=== PATIENT | female | born 2000 ===

== ENCOUNTER 2021-07-12 19:47 | Emergency (ER) | payer BC ==
[2021-07-13] MEDS ORDERED: KETOROLAC 60 MG/2 ML INJ IM ONE (07:43)
[2021-07-13] MEDS ORDERED: BUTALB/ACETAMINOPHEN/CAFFEINE TAB PO ONE (07:43)
[2021-07-13] MEDS ORDERED: dexAMETHasone 4 MG/ML VIAL IM ONE (07:45)
--- NOTE | 2021-07-13 07:46 | Emergency Department Report ---
ED General Adult HPI - General Chief complaint: Headache Stated complaint: HEADACHE/FEVER/STIFF NECK Time Seen by Provider: 07/13/21 07:36 Source: patient Mode of arrival: Ambulatory Limitations: No Limitations - History of Present Illness Initial comments: 21-year-old female who denies any significant past medical history presents to the ER today with complaints of fever, headache and neck pain. Patient states that she has been having the symptoms since last week. She states that the highest measured temperature she has had was 100. She has been taking Advil with minimal relief of her symptoms. She reports associated rhinorrhea and body aches but she denies any sore throat, cough, chest pain, abdominal pain, symptoms or any additional symptoms. She states that she has been vaccinated against COVID-19. She denies any ill contacts or recent travel. MD Complaint: Neck pain, headache, fever -: Gradual, days(s) (Since last week) - Related Data Previous Rx's Medication Instructions Recorded Last Taken Type Butalb/Acetamin/Caff 50-325-40 1 tab PO Q6HR PRN #12 tab 07/13/21 Unknown Rx [Fioricet 50-325-40] Ketorolac [Toradol] 10 mg PO Q6H PRN #20 07/13/21 Unknown Rx Allergies Allergy/AdvReac Type Severity Reaction Status Date / Time shellfish derived Allergy Swelling Verified 07/12/21 20:47 ED Review of Systems ROS: Stated complaint: HEADACHE/FEVER/STIFF NECK Other details as noted in HPI Comment: All other systems reviewed and negative Constitutional: fever Eyes: denies: eye pain, eye discharge, vision change ENT: other (rhinorrhea) Respiratory: denies: cough, shortness of breath, SOB with exertion, SOB at rest, wheezing Cardiovascular: denies: chest pain, palpitations Gastrointestinal: denies: abdominal pain, nausea, vomiting, diarrhea, constipation, hematemesis, melena, hematochezia Genitourinary: denies: urgency, dysuria, discharge Musculoskeletal: denies: back pain, joint swelling, arthralgia, myalgia Skin: denies: rash, lesions, change in color, change in hair/nails, pruritus Neurological: headache. denies: numbness, paresthesias, confusion, abnormal g ait, vertigo Psychiatric: denies: anxiety, depression, auditory hallucinations, visual hallucinations, homicidal thoughts, suicidal thoughts Hematological/Lymphatic: denies: easy bleeding, easy bruising, swollen glands ED Past Medical Hx - Medications Home Medications: Home Medications Medication Instructions Recorded Confirmed Last Taken Type Butalb/Acetamin/Caff 50-325-40 1 tab PO Q6HR PRN #12 tab 07/13/21 Unknown Rx [Fioricet 50-325-40] Ketorolac [Toradol] 10 mg PO Q6H PRN #20 07/13/21 Unknown Rx ED Physical Exam - General Limitations: No Limitations General appearance: alert, in no apparent distress - Head Head exam: Present: atraumatic, normocephalic, normal inspection - Eye Eye exam: Present: normal appearance, PERRL, EOMI Pupils: Present: normal accommodation - ENT ENT exam: Present: normal exam, mucous membranes moist, TM's normal bilaterally - Neck Neck exam: Present: normal inspection, tenderness (bilateral paraspinal muscles with spasm), full ROM. Absent: meningismus - Respiratory Respiratory exam: Present: normal lung sounds bilaterally. Absent: respiratory distress, wheezes, rales, rhonchi - Cardiovascular Cardiovascular Exam: Present: regular rate, normal rhythm, normal heart sounds - Neurological Exam Neurological exam: Present: alert, oriented X3, CN II-XII intact, normal gait - Psychiatric Psychiatric exam: Present: normal affect, normal mood - Skin Skin exam: Present: intact ED Course Vital Signs 07/12/21 07/13/21 07/13/21 20:49 08:00 08:01 Temperature 98.8 F Pulse Rate 98 H Respiratory 16 18 18 Rate Blood Pressure 109/63 Blood Pressure [Left] O2 Sat by Pulse 99 Oximetry 07/13/21 07/13/21 08:40 08:49 Temperature 98.7 F 98.7 F Pulse Rate 67 67 Respiratory 18 16 Rate Blood Pressure Blood Pressure 95/54 95/54 [Left] O2 Sat by Pulse 98 98 Oximetry ED Medical Decision Making - Lab Data Result diagrams: 07/13/21 07:57 07/13/21 07:57 Laboratory Results - last 24 hr 07/13/21 07/13/21 07:57 07:57 WBC 5.0 RBC 4.56 Hgb 12.1 Hct 37.9 MCV 83 MCH 27 L MCHC 32 RDW 12.8 L Plt Count 185 Lymph % (Auto) [employer] Support Sales Representative Seg Neutrophils % [employer] Support [employer] Representative Sodium 140 Potassium 3.7 Chloride 104.3 Carbon Dioxide 29 Anion Gap 10 BUN 5 L Creatinine 0.5 L Estimated GFR > 60 BUN/Creatinine Ratio 10 Glucose 92 Calcium 8.7 - Medical Decision Making Labs reviewed and unremarkable. Patient currently sitting in recliner playing on her phone. Patient is not toxic, not ill-appearing and not in any distress. She has some mild tenderness to palpation to the paraspinal muscles of her neck as well as some spasm but she moves her neck just fine without any stiffness or rigidity. She has no meningeal signs on exam. she is neurologically intact and ambulates well. She appears hydrated. Her vital signs have been stable. Suspect her symptoms could be related to a viral illness at this time. She states that she is vaccinated against COVID but I did recommend just getting a test to rule that out. At this time there is no indication for LP, head CT or any additional work-up, neuro consult or admission. Discussed suspected diagnosis and treatment plan with patient. Recommend close follow-up with with PCP. She understands to return if worse. Critical care attestation.: If time is entered above; I have spent that time in minutes in the direct care of this critically ill patient, excluding procedure time. ED Disposition Clinical Impression: Viral syndrome, Neck muscle spasm Disposition: 01 HOME / SELF CARE / HOMELESS Is pt being admited?: No Does the pt Need Aspirin: No Condition: Stable Instructions: Muscle Cramps and Spasms, Viral Illness, Adult Additional Instructions: Suspect that your symptoms are related to nonspecific viral illness at this time. The COVID virus is a possibility and you may want to take home test or get tested at local urgent care or pharmacy. I recommend that you take the Toradol and the Fioricet to help with your pain and your headache. You can take [id number] cough cold medication if the symptoms develop. I recommend lots of fluids, rest and taking immune boosters such as vitamin C, zinc and vitamin D. Follow-up closely with your primary care doctor. Return to the ER if your symptoms changes or worsens in any way. Prescriptions: Butalb/Acetamin/Caff 50-325-40 [Fioricet 50-325-40] 1 tab PO Q6HR PRN #12 tab PRN Reason: Headache Ketorolac [Toradol] 10 mg PO Q6H PRN #20 PRN Reason: Pain/fever Referrals: FREDERICK LEMA MD [Primary Care Provider] - 3-5 Days Forms: Work/School Release Form(ED) Time of Disposition: 08:31
[2021-07-13 08:15] LABS: Hematocrit 37.9 % (30.3-42.9); Hemoglobin 12.1 gm/dl (10.1-14.3); Mean Corpuscular HGB Conc 32 % (30-34); Mean Corpuscular Volume 83 fl (79-97); Platelet Count 185 K/mm3 (140-440); Red Blood Count 4.56 M/mm3 (3.65-5.03); Red Cell Distribution Width 12.8 % (13.2-15.2)
[2021-07-13 08:26] LABS: BUN/Creatinine Ratio 10; Blood Urea Nitrogen 5 mg/dL (7-17); Calcium 8.7 mg/dL (8.4-10.2); Hemolysis Index 12
[2021-07-13 08:41] VITALS: BP 95/54
[2021-07-13 09:16] LABS: Basophils % (Manual) 0 % (0.0-1.8); Platelet Estimate Consistent w Auto; Total Cells Counted 100
== END 2021-07-13 08:58 | disposition home or self-care (01) ==
LOC: ED 19:47
DX: B34.9 Viral infection, unspecified (principal); M62.838 Other muscle spasm; Z91.013 Allergy to seafood; Z79.899 Other long term (current) drug therapy
CPT/HCPCS: 36415; 80048; 85007; 85025; 96372; 99283; J1100; J1885